=== PATIENT | female | born 1955 | race Caucasian/White ===

== ENCOUNTER 2021-04-10 10:21 | Outpatient (CLI) | payer MEDICARE, SELFPAY ==
--- NOTE | ~2021-04-10 | XR_ITS ---
EXAMINATION: XR UGIAC wo kub DATE: 04/10/2021 11:07 INDICATION: Dysphagia to liquids. TECHNIQUE: The patient drank thick barium, gas-producing crystals, and thin barium. Fluoroscopy of th e esophagus, stomach, and proximal small bowel was performed. Fluoroscopy exposure time was 0.5 minut es. The total number of images was 518. Total dose-area product was 1.234 Gy-cm^2. COMPARISON: None. FINDINGS: There is no mass or stricture of the esophagus. Esophageal motility is normal. There is no hiatal hernia. The stomach and proximal small bowel show normal folding patterns. IMPRESSION: 1. Normal upper gastrointestinal series. Reviewed, dictated and finalized at location A. OUROLOGIST
== END 2021-04-10 10:22 | disposition home or self-care (01) ==
LOC: ANHIMG 10:25
PROVIDERS: PCP Family Medicine; Visit Provider Nurse Practitioner Family
DX: R13.10 Dysphagia, unspecified (principal)
CPT/HCPCS: 74246

== ENCOUNTER 2021-04-17 12:59 | Outpatient (CLI) | payer MEDICARE, SELFPAY ==
--- NOTE | ~2021-04-17 | XR_ITS ---
MODIFIED ESOPHAGRAM HISTORY: Dysphagia. TECHNIQUE: Modified barium esophagram was performed on 04/17/2021. I administered fluoroscopy and perf ormed the exam with speech pathologist. Patient was seated for lateral fluoroscopic imaging for britni stion of thin liquids, pudding, solids and quantified amounts, followed by thin liquids in uncontroll ed amounts. This was recorded on tape. A single fluoroscopic spot image was also recorded. The DAP fo r this procedure was 1.249 Gycm2. The amount of fluoroscopy time used during this procedure was 1.8 m inutes. FINDINGS: Oral stage: Adequate function. Pharyngeal stage: Adequate function. Cervical/esophageal stage: Adequate function. IMPRESSION: Patient tolerated regular consistency oral feedings in the upright position. Please becki elate with speech pathologist findings and specific feeding recommendations. Reviewed, dictated and finalized at location A. INE ADJUSTER HELPER IMPRESSION: Patient tolerated regular consistency oral feedings in the upright position. Please correlate with speech pathologist findings and specific feedi ng recommendations.
--- NOTE | 2021-04-17 14:02 | STOPEVAL ---
Thank you for referring Joaquín Adams to [facility].? Attending Provider: BELL Wise Assessment Status Evaluation Outpatient Past Medical History Past Medical History No Past Medical/Surgical History Patient/Family Denies Significant Past Medical/ Surgical History Source of Past Medical History Patient Evaluation Information Problem Diagnosis strangling or choking on thin liquids Onset a while but worse lately Cause N/A. Subjective Information Patient reports that she has Query Text:As Reported By Patient/ had difficulty swallowing thin Family liquids for a while but she reports it has become more frequent lately. She states she had COVID in October of 2020 and she feels that has contributed to her difficulty swallowing. Patient also reports a history of claustrophobia and increased anxiety since onset of COVID. Diagnostic Tests X-Rays For This Problem No MRI For This Problem No Other Tests For This Problem No Prior Level of Function Prior Swallow Level Prior Intake Method Oral Prior Diet Regular (Level 7 Diet) Prior Liquid Consistency Thin (Level 0 Diet) Pain Assessment Timing of Pain Assessment Timing of Pain Assessment Assessment Self Report Self Report Pain Level 0 Pain Score Pain Score 0: Self Report Modified Barium Swallow Evaluation Consistency Solid Consistency 5 mL Method of Presentation Spoon Oral Preparatory Symptoms Within Functional Limits Oral Phase Symptoms Within Functional Limits Oral Phase Comments Multiple swallows for residue. Pharyngeal Phase Symptoms Within Functional Limits Severity of Vallecular Residue None - 0% No Residue Severity of Pyriform Sinus Residue None - 0% No Residue 8 Point Laryngeal Penetration-Aspiration Material Does Not Enter Airway Scale Cervical/Esophageal Symptoms Within Functional Limits Mixed Consistency 5 mL Method of Presentation Spoon Oral Preparatory Symptoms Within Functional Limits Oral Phase Symptoms Within Functional Limits Oral Phase Comments Multiple swallows for residue. Pharyngeal Phase Symptoms Within Functional Limits Severity of Vallecular Residue None - 0% No Residue Severity of Pyriform Sinus Residue None - 0% No Residue 8 Point Laryngeal Penetration-Aspiration Material Does Not Enter Airway Scale Cervical/Esophageal Symptoms Within Functional Limits Pu
== END 2021-04-17 13:00 | disposition home or self-care (01) ==
PROVIDERS: PCP Family Medicine; Visit Provider Nurse Practitioner Family
DX: R13.10 Dysphagia, unspecified (principal)
CPT/HCPCS: 92611

== ENCOUNTER 2021-12-21 10:45 | Emergency (ER) | payer MEDICARE, SELFPAY ==
[2021-12-21 10:46] VITALS: BP 124/71; PULSE 106; RESP 14; TEMP 36.2; O2SAT 98
--- NOTE | 2021-12-21 11:48 | ED.BACK ---
HPI - Back Pain/Injury General Chief Complaint: Back Pain/Injury Stated Complaint: back pain Time Seen by Provider: 12/21/21 11:16 History of Present Illness HPI Narrative: 66-year-old female presents to the emergency room for complaints of left lower back pain. She reports that the pain has been going on for about a week. She points to the area of the left buttock as the location of pain. No pain in the center of her back. She denies any radiation into her legs. Denies any urinary symptoms. No numbness or tingling. She denies any recent fall or trauma. She has been taking Tylenol at home which was working initially but has not helped since yesterday. During the night she was unable to find a position of comfort and did not sleep well. Related Data Home Medications Medication Instructions Recorded Confirmed apixaban 5 mg tablet (Eliquis) 5 mg PO BID 02/08/21 04/12/21 ascorbate calcium (vitamin C) 500 500 mg PO DAILY 02/08/21 04/12/21 mg tablet cholecalciferol (vitamin D3) 10 10 mcg PO DAILY 02/08/21 04/12/21 mcg (400 unit) capsule fluticasone propionate 50 1 spray intranasal BID 02/08/21 04/12/21 mcg/actuation nasal spray,suspension (Flonase Allergy Relief) levothyroxine 25 mcg capsule 25 mcg PO DAILY 02/08/21 04/12/21 multivitamin (Daily Multi-Vitamin 1 tablet PO DAILY 02/08/21 04/12/21 tablet) mycophenolate mofetil 200 mg/mL 1,000 mg PO DAILY 02/08/21 04/12/21 oral suspension (CellCept) Allergies Allergy/AdvReac Type Severity Reaction Status Date / Time codeine AdvReac Severe Hallucinati Verified 04/12/21 10:48 ng naproxen AdvReac Severe Rash Verified 04/12/21 10:48 [From Flanax (naproxen)] Review of Systems Review of Systems: CONSTITUTIONAL: Denies fever, chills, or sweats. EYES: Denies visual changes, redness, or discharge. ENT: Denies rhinorrhea, congestion, sore throat, or otalgia. CARDIOVASCULAR: Denies chest pain, palpitations, or edema. RESPIRATORY: Denies cough or dyspnea. GASTROINTESTINAL: Denies abdominal pain, nausea, vomiting, or diarrhea. GENITOURINARY: Denies dysuria or hematuria. SKIN: Denies rash or itching. MUSCULOSKELETAL: As per HPI NEUROLOGIC: Denies headache, numbness, dizziness, or weakness. PSYCHIATRIC: Denies anxiety or depression. [facility] Past Medical History Medical History GERD (gastroesophageal reflux disease) Hyperlipidemia Hypothyroidism Obese Osteoporosis Pulmonary fibrosis Rheumatoid arthritis Vasculitis Social History Social History Alcohol intake: never Substance use: never Exam Narrative: GENERAL: Well-appearing, well-nourished, and in no acute distress. HEAD: Normocephalic, atraumatic. NECK: Supple. No adenopathy or masses. No carotid bruits or JVD CHEST: Clear to auscultation. No respiratory distress. No wheezes rales or rhonchi HEART: Regular rate and rhythm. No murmur heard. Normal peripheral pulses. ABDOMEN: Soft, nontender, nondistended, normal active bowel sounds. EXTREMITIES: Normal range of motion. No edema. SKIN: Warm, dry, no rash. NEURO: No focal deficits. Alert and oriented x3. normal sensation to light palpation bilateral lower extremities Back: No tenderness over thoracic or lumbar spine. Tenderness reported over the left SI joint. Normal ROM without restriction. PSYCH: Normal mood and affect. Course Vital Signs Vital signs: Vital Signs Temperature 36.2 C L 12/21/21 10:46 Pulse Rate 106 H 12/21/21 10:46 Respiratory Rate 14 12/21/21 10:46 Blood Pressure 124/71 12/21/21 10:46 Pulse Oximetry 98 12/21/21 10:46 Oxygen Delivery Room Air 12/21/21 10:46 Temperature 36.2 C L 12/21/21 10:46 Pulse Rate 78 12/21/21 12:15 Respiratory Rate 18 12/21/21 12:15 Blood Pressure 122/76 12/21/21 12:15 Pulse Oximetry 99 12/21/21 12:15 Oxygen Delivery Room Air
[2021-12-21 12:15] VITALS: BP 122/76; PULSE 78; RESP 18; O2SAT 99
== END 2021-12-21 12:17 | disposition home or self-care (01) ==
PROVIDERS: Emergency Provider Nurse Practitioner Family; PCP Family Medicine
DX: M54.50 Low back pain, unspecified (principal); E78.5 Hyperlipidemia, unspecified; E03.9 Hypothyroidism, unspecified; J84.10 Pulmonary fibrosis, unspecified; M81.0 Age-related osteoporosis without current pathological fracture; M06.9 Rheumatoid arthritis, unspecified; K21.9 Gastro-esophageal reflux disease without esophagitis; E66.9 Obesity, unspecified; Z68.33 Body mass index [BMI] 33.0-33.9, adult; Z79.01 Long term (current) use of anticoagulants
CPT/HCPCS: 99283

== ENCOUNTER 2022-06-18 09:42 | Outpatient (CLI) | payer MEDICARE, SELFPAY ==
--- NOTE | ~2022-06-18 | XR_ITS ---
XR small bowel follow through DATE: 06/18/2022 11:31 INDICATION: Personal history of disease of the digestive system TECHNIQUE: Serial images of the abdomen after oral administration of barium contrast material. Fluoroscopy time: 0.5 minutes DAP: 1.234 COMPARISON: None FINDINGS: The stomach and duodenum appear normal. Normal duodenal C-loop. Normal mucosal pattern of t he small bowel. No stricture, mucosal fold thickening, ulceration, diverticulum or obstruction of the small bowel is noted. The terminal ileum appears unremarkable. Contrast material reaches the colon w ithin 45 minutes. No obstruction. IMPRESSION: No significant abnormality of the small bowel Reviewed, dictated and finalized at Location A. Reviewed, dictated and finalized at location A.
== END 2022-06-18 09:43 | disposition home or self-care (01) ==
PROVIDERS: PCP Family Medicine; Visit Provider Nurse Practitioner Family
DX: Z87.19 Personal history of other diseases of the digestive system (principal)
CPT/HCPCS: 74250

== ENCOUNTER 2022-07-31 00:22 | Day surgery (SDC) | payer MEDICARE, SELFPAY ==
[2022-06-26 12:38] VITALS: BMI 31.0
[2022-07-26 14:54] VITALS: BMI 31.0
--- NOTE | 2022-07-30 12:03 | WPDANESEPPF ---
Anes - Initial Pre Proc Eval Procedure: Operation Date: 07/31/22 11:00 Proposed Procedures p Esophagogastroduodenoscopy & Colonoscopy - Levi Fowler MD Date/Time: 07/30/22 12:03 Surgeon: Levi Fowler MD Pre Op Diagnosis: JENNIFER, Blake's Esophagus Patient Data Age: 67 Gender: F Height: 1.6 m Weight: 79.5 kg Allergies Allergy/AdvReac Type Severity Reaction Status Date / Time ciprofloxacin Allergy Intermediate Rash Verified 07/31/22 09:59 codeine AdvReac Severe Hallucinati Verified 07/31/22 09:59 ng naproxen AdvReac Severe Rash Verified 07/31/22 09:59 [From Flanax (naproxen)] Home Medications Medication Instructions Recorded Confirmed Type ascorbate calcium (vitamin C) 500 500 mg PO DAILY 02/08/21 07/31/22 History mg tablet cholecalciferol (vitamin D3) 10 10 mcg PO DAILY 02/08/21 07/31/22 History mcg (400 unit) capsule fluticasone propionate 50 2 spray intranasal DAILY PRN 02/08/21 07/31/22 History mcg/actuation nasal Allergy Symptoms spray,suspension (Flonase Allergy Relief) levothyroxine 25 mcg capsule 25 mcg PO DAILY 02/08/21 07/31/22 History multivitamin (Daily Multi-Vitamin 1 tablet PO DAILY 02/08/21 07/31/22 History tablet) cyclobenzaprine 10 mg tablet 10 mg PO TID PRN muscle spasm #20 12/21/21 07/31/22 Rx tabs apixaban 5 mg tablet (Eliquis) 5 mg PO BID 06/06/22 07/31/22 History benzonatate 200 mg capsule 200 mg PO TID PRN Cough 06/06/22 07/31/22 History denosumab 60 mg/mL subcutaneous 60 mg subcut [id number] 06/06/22 07/31/22 History syringe (Prolia) fluticasone 100 mcg-salmeterol 50 1 inh inhalation Q12H PRN 06/06/22 07/31/22 History mcg/dose blistr powdr for Shortness Of Breath inhalation fluticasone furoate 50 1 inh inhalation DAILY PRN 06/06/22 07/31/22 History mcg/actuation blister powder for Shortness Of Breath inhalation (Arnuity Ellipta) Adult Probiotic 1 cap PO DAILY 06/26/22 07/31/22 History cetirizine 10 mg tablet (Zyrtec) 10 mg PO DAILY PRN Allergy Symptoms 06/26/22 07/31/22 History mycophenolate mofetil 500 mg tablet 1,500 mg PO BID 06/26/22 07/31/22 History omeprazole 40 mg capsule,delayed 40 mg PO DAILY 06/26/22 07/31/22 History release prednisone 10 mg tablet 10 mg PO DAILY 06/26/22 07/31/22 History pseudoephedrine HCl 30 mg tablet 30 mg PO Q4H PRN Sinus Symptoms 06/26/22 07/31/22 History rituximab-abbs 10 mg/mL See Rx Instructions .Route .COMPLEX 06/26/22 07/31/22 History intravenous solution Patient hx anesthesia problems: none Family hx anesthesia problems: none Results Review: All pre-operative results and documents have been reviewed as part of the pre-operative evaluation. [facility] Past Medical History Medical History (Updated 06/06/22 @ 13:09 by TANIA WiseN-C) Blake's esophagus Constipation DVT (deep venous thrombosis) GERD (gastroesophageal reflux disease) Hx SBO Hyperlipidemia Hypothyroidism JENNIFER (iron deficiency anemia) Obese Osteoporosis Pulmonary fibrosis Rheumatoid arthritis Vasculitis Social History Social History Smoking status: Never smoker Alcohol intake: never Substance use: never Living arrangements: with family Spiritual care concerns: No Anes - Eval Final PreProcedure Day of Procedure 07/30/22 12:03 Patient weight: obese Heart: regular rate and rhythm Lungs: clear to auscultation Airway: Mallampati scale class II Neurological: alert and oriented Last oral intake: >/= 8 hours ASA classification: III Emergent: no Anesthetic plan: proceed Anesthesia type and monitoring: general GIVS and standard monitoring Results Review: All pre-operative results and documents have been reviewed as part of the pre-operative evaluation. Informed Consent: The patient's anesthetic plan and its attendant risks and benefits were discussed with the patient/family/POA. Questions were solicited and answers provided to the sati
[2022-07-31 09:50] VITALS: BP 136/82; PULSE 111; RESP 18; TEMP 36.4; O2SAT 100; BMI 30.3
--- NOTE | 2022-07-31 10:20 | PM.HPGS ---
History of Present Illness History of Present Illness Consent: Risks, benefits, and alternatives have been discussed and questions answered. Patient agrees to proceed with procedure. Chief complaint: JENNIFER, Blake's Esophagus Narrative: Joaquín Adams is a 67 year old female with history of RA, vasculitis, DVT (on Eliquis), progressive thrombocytosis, GERD,? Blake's esophagus, is referred for evaluation of JENNIFER. Recent labs reviewed with 11&35, normal ferritin but on the low end of normal, Low iron sat at 7% and low iron at 24 with normal TIBC. Normal folate and B12. She does report BRBPR with BM that has been going on for a while now ? Review of Systems Review of Systems: All systems reviewed & are unremarkable except as noted in HPI and below PMFSH Past Medical History Medical History Blake's esophagus Constipation DVT (deep venous thrombosis) GERD (gastroesophageal reflux disease) Hx SBO Hyperlipidemia Hypothyroidism JENNIFER (iron deficiency anemia) Obese Osteoporosis Pulmonary fibrosis Rheumatoid arthritis Vasculitis Social History Social History Smoking status: Never smoker Alcohol intake: never Substance use: never Living arrangements: with family Spiritual care concerns: No Meds Home Medications and Allergies Home Medications Medication Instructions Recorded Confirmed Type ascorbate calcium (vitamin C) 500 500 mg PO DAILY 02/08/21 07/31/22 History mg tablet cholecalciferol (vitamin D3) 10 10 mcg PO DAILY 02/08/21 07/31/22 History mcg (400 unit) capsule fluticasone propionate 50 2 spray intranasal DAILY PRN 02/08/21 07/31/22 History mcg/actuation nasal Allergy Symptoms spray,suspension (Flonase Allergy Relief) levothyroxine 25 mcg capsule 25 mcg PO DAILY 02/08/21 07/31/22 History multivitamin (Daily Multi-Vitamin 1 tablet PO DAILY 02/08/21 07/31/22 History tablet) cyclobenzaprine 10 mg tablet 10 mg PO TID PRN muscle spasm #20 12/21/21 07/31/22 Rx tabs apixaban 5 mg tablet (Eliquis) 5 mg PO BID 06/06/22 07/31/22 History benzonatate 200 mg capsule 200 mg PO TID PRN Cough 06/06/22 07/31/22 History denosumab 60 mg/mL subcutaneous 60 mg subcut [id number] 06/06/22 07/31/22 History syringe (Prolia) fluticasone 100 mcg-salmeterol 50 1 inh inhalation Q12H PRN 06/06/22 07/31/22 History mcg/dose blistr powdr for Shortness Of Breath inhalation fluticasone furoate 50 1 inh inhalation DAILY PRN 06/06/22 07/31/22 History mcg/actuation blister powder for Shortness Of Breath inhalation (Arnuity Ellipta) Adult Probiotic 1 cap PO DAILY 06/26/22 07/31/22 History cetirizine 10 mg tablet (Zyrtec) 10 mg PO DAILY PRN Allergy Symptoms 06/26/22 07/31/22 History mycophenolate mofetil 500 mg tablet 1,500 mg PO BID 06/26/22 07/31/22 History omeprazole 40 mg capsule,delayed 40 mg PO DAILY 06/26/22 07/31/22 History release prednisone 10 mg tablet 10 mg PO DAILY 06/26/22 07/31/22 History pseudoephedrine HCl 30 mg tablet 30 mg PO Q4H PRN Sinus Symptoms 06/26/22 07/31/22 History rituximab-abbs 10 mg/mL See Rx Instructions .Route .COMPLEX 06/26/22 07/31/22 History intravenous solution Allergies Allergy/AdvReac Type Severity Reaction Status Date / Time ciprofloxacin Allergy Intermediate Rash Verified 07/31/22 09:59 codeine AdvReac Severe Hallucinati Verified 07/31/22 09:59 ng naproxen AdvReac Severe Rash Verified 07/31/22 09:59 [From Flanax (naproxen)] cefazolin AdvReac Rash Verified 07/31/22 10:25 Vital Signs Vital Signs - 24 hr 07/31/22 09:50 Temperature 36.4 C L Pulse Rate 111 H Respiratory Rate 18 Blood Pressure 136/82 Pulse Oximetry 100 Oxygen Delivery Room Air Exam Const: General: alert Orientation/consciousness: patient oriented x3 Resp: Auscultation: clear to auscultation bilaterally Cardio: Rhythm: regular rhythm GI: GI Palp: Y
[2022-07-31] MEDS: LACTATED RINGERS 1,000 ML 150 ML IV CONT (10:23)
--- NOTE | 2022-07-31 11:07 | SUR.OPER ---
EGD end 1100 Colonoscopy start 110
[2022-07-31 11:23] VITALS: BP 103/68; PULSE 93; RESP 19; O2SAT 95
[2022-07-31 11:33] VITALS: BP 110/70; PULSE 95; RESP 23; O2SAT 97
[2022-07-31 11:43] VITALS: BP 121/84; PULSE 105; RESP 21; O2SAT 100
== END 2022-07-31 12:06 | disposition home or self-care (01) ==
PROVIDERS: PCP Family Medicine; Visit Provider Internal Medicine Gastroenterology
PROC: 0DJ08ZZ Inspection of Upper Intestinal Tract, Via Natural or Artificial Opening Endoscopic (ICD-10-PCS; CPT 43235; principal; 2022-07-31 11:00)
DX: D50.9 Iron deficiency anemia, unspecified (principal); K57.30 Diverticulosis of large intestine without perforation or abscess without bleeding; K22.70 Barrett's esophagus without dysplasia; K44.9 Diaphragmatic hernia without obstruction or gangrene; M06.9 Rheumatoid arthritis, unspecified; E78.5 Hyperlipidemia, unspecified; E03.9 Hypothyroidism, unspecified; M81.0 Age-related osteoporosis without current pathological fracture; K21.9 Gastro-esophageal reflux disease without esophagitis; Z86.718 Personal history of other venous thrombosis and embolism; E66.9 Obesity, unspecified; Z68.30 Body mass index [BMI] 30.0-30.9, adult; Z79.01 Long term (current) use of anticoagulants; Z79.51 Long term (current) use of inhaled steroids; Z79.620 Long term (current) use of immunosuppressive biologic
CPT/HCPCS: 45378; 43239; 88305; J2704; J7120